=== PATIENT | male | born 1965 | race Caucasian/White ===

== ENCOUNTER 2018-01-03 21:40 | Inpatient (IN) | payer OTHER ==
[~2018-01-03] VITALS: Ht 175.3 cm; Wt 108.1 kg
[2018-01-03 22:35] LABS: BASOPHIL % 0.4 % (0-2); PLATELET COUNT 264 x10^3mcL (130-400)
[2018-01-03 22:36] LABS: CALCIUM 8.6 mg/dL (8.5-10.1); CARBON DIOXIDE 32.5 mmol/L (21-32); CHLORIDE SERUM 104 mmol/L (98-107); CREATININE SERUM 1.1 mg/dL (0.7-1.3); GFR1 > 60 mL/min; GLUCOSE SERUM 136 mg/dL (74-106); POTASSIUM SERUM 3.8 mmol/L (3.5-5.1); RED CELL DISTRIBUTION WIDTH 15.4 % (11.5-14.5); SODIUM SERUM 142 mmol/L (136-145)
[2018-01-03 22:43] LABS: ALKALINE PHOSPHATASE 72 U/L (46-116); ALT/SGPT 36 U/L (16-63); AST/SGOT 17 U/L (15-37); BILIRUBIN TOTAL 0.27 mg/dL (0.20-1.00); TOTAL PROTEIN, SERUM 6.3 g/dL (6.4-8.2)
[2018-01-04] MEDS ORDERED: METOPROLOL TART50 MG PO (00:16)
[2018-01-04] MEDS ORDERED: ELIQUIS5 MG PO (00:16)
[2018-01-04] MEDS ORDERED: ALLOPURINOL100 MG PO (00:16)
[2018-01-04] MEDS ORDERED: METFORMIN HCL1000 MG PO (00:17)
[2018-01-04] MEDS ORDERED: ZOLOFT50 MG PO (00:17)
[2018-01-04] MEDS ORDERED: DIG125 PO (00:17)
[2018-01-04] MEDS ORDERED: ALPRAZOLAM XR1 MG PO (00:18)
[2018-01-04] MEDS ORDERED: DILTIAZEM HCL240 MG PO (00:18)
[2018-01-04] MEDS ORDERED: NOR10T PO (00:18)
[2018-01-04] MEDS ORDERED: LIPI10 PO (00:19)
[2018-01-04 01:29] LABS: FREE T4 1.09 ng/dL (0.76-1.46); FREE THYROXINE INDEX 2.3 ug/dL (1.4-4.5); T4(THYROXINE) 6.3 ug/dL (4.7-13.3)
[2018-01-04 01:33] LABS: T3 TOTAL 0.99 ng/mL
[2018-01-04 01:41] LABS: MAGNESIUM 1.6 mg/dL (1.8-2.4)
[2018-01-04 02:35] LABS: CHOLESTEROL/HDL RATIO 3.7
[2018-01-04 05:38] LABS: BASOPHIL % 0.5 % (0-2); PLATELET COUNT 222 x10^3mcL (130-400)
[2018-01-04 05:47] LABS: RED CELL DISTRIBUTION WIDTH 15.6 % (11.5-14.5)
[2018-01-04 05:50] LABS: CALCIUM 8.6 mg/dL (8.5-10.1); CARBON DIOXIDE 29.7 mmol/L (21-32); CHLORIDE SERUM 105 mmol/L (98-107); CREATININE SERUM 0.9 mg/dL (0.7-1.3); GFR1 > 60 mL/min; GLUCOSE SERUM 127 mg/dL (74-106); MAGNESIUM 1.5 mg/dL (1.8-2.4); PHOSPHOROUS 2.9 mg/dL (2.5-4.9); POTASSIUM SERUM 3.7 mmol/L (3.5-5.1); SODIUM SERUM 143 mmol/L (136-145)
[2018-01-04 06:58] LABS: microscopic required? NO
[2018-01-04 07:25] LABS: urine erythrocyte NEGATIVE (NEGATIVE)
[2018-01-04 07:48] LABS: AMPHETAMINE QUAL UR POSITIVE (See below)
[2018-01-04 09:56] VITALS: BP 127/94
[2018-01-04 13:30] VITALS: BP 128/80
[2018-01-04 16:53] VITALS: BP 125/72
[2018-01-04 19:52] VITALS: BP 116/75
[2018-01-05 06:02] VITALS: BP 127/77
[2018-01-05 07:37] LABS: CARBON DIOXIDE 28.3 mmol/L (21-32); CHLORIDE SERUM 103 mmol/L (98-107); CREATININE SERUM 1.1 mg/dL (0.7-1.3); GFR1 > 60 mL/min; GLUCOSE SERUM 140 mg/dL (74-106); MAGNESIUM 1.5 mg/dL (1.8-2.4); POTASSIUM SERUM 3.7 mmol/L (3.5-5.1); SODIUM SERUM 139 mmol/L (136-145)
[2018-01-05 08:03] LABS: BASOPHIL % 0.5 % (0-2); PLATELET COUNT 243 x10^3mcL (130-400); RED CELL DISTRIBUTION WIDTH 15.1 % (11.5-14.5)
[2018-01-05 10:25] VITALS: BP 122/89
[2018-01-05 13:40] VITALS: BP 124/92
[2018-01-05 16:26] VITALS: BP 111/56
[2018-01-05 20:59] VITALS: BP 134/78
[2018-01-05 22:49] VITALS: Ht 175.3 cm; Wt 108.1 kg
[2018-01-06 06:04] VITALS: BP 121/74
[2018-01-06 09:00] VITALS: BP 119/86
[2018-01-06 12:08] VITALS: BP 118/80
[2018-01-06] MEDS ORDERED: ATIVAN1 MG PO (16:00)
[2018-01-06 16:01] VITALS: BP 128/79
[2018-01-06] MEDS ORDERED: HIB240 TP (16:07)
[2018-01-06] MEDS ORDERED: BACTROBAN21 (16:08)
[2018-01-06 17:20] VITALS: BP 128/79
== END 2018-01-06 18:00 | disposition home or self-care (01) | DRG 201 ==
LOC: ED 21:40 → DU 01-04 00:30
PROVIDERS: Emergency Medicine; General Practice
DX: I48.0 Paroxysmal atrial fibrillation (principal); I27.20 Pulmonary hypertension, unspecified; I42.9 Cardiomyopathy, unspecified; E11.65 Type 2 diabetes mellitus with hyperglycemia; E44.1 Mild protein-calorie malnutrition; E83.42 Hypomagnesemia; I20.9 Angina pectoris, unspecified; M94.0 Chondrocostal junction syndrome [Tietze]; I50.9 Heart failure, unspecified; I11.0 Hypertensive heart disease with heart failure; R45.851 Suicidal ideations; F32.9 Major depressive disorder, single episode, unspecified; H54.8 Legal blindness, as defined in USA; E66.9 Obesity, unspecified; M10.9 Gout, unspecified; Z95.0 Presence of cardiac pacemaker; Z79.84 Long term (current) use of oral hypoglycemic drugs; J44.9 Chronic obstructive pulmonary disease, unspecified; F41.9 Anxiety disorder, unspecified; Z79.899 Other long term (current) drug therapy; F15.10 Other stimulant abuse, uncomplicated; Z68.35 Body mass index [BMI] 35.0-35.9, adult
CPT/HCPCS: 82962; 83880; 84439; 85378; J3490; J7030; Q0092